=== PATIENT | male | born 1990 | race Caucasian/White ===

== ENCOUNTER 2017-11-19 17:44 | Emergency (ER) | payer MEDICAID, SELFPAY ==
--- NOTE | 2017-11-19 13:01 | EKG12_ITS ---
Test Reason : CP Blood Pressure : / mmHG Vent. Rate : 082 BPM Atrial Rate : 082 BPM P-R Int : 146 ms QRS Dur : 102 ms QT Int : 372 ms P-R-T Axes : 011 015 035 degrees QTc Int : 434 ms Normal sinus rhythm with sinus arrhythmia Normal ECG Confirmed by IVETTE MENDEZ MD ([id number]), editor newspaper JUANPABLO GONZALEZ ([id number]) on 11/24/2017 5:33:02 PM Referred By: SHANE
--- NOTE | 2017-11-19 16:10 | RAD_ITS ---
STUDY: X-RAY CHEST REASON FOR EXAM: Male, 27 years old. Chest pain TECHNIQUE: Single AP portable view of the chest. COMPARISON: None. FINDINGS: The lungs are clear and expanded. There is no demonstrated pleural abnormality. Normal size heart. Normal mediastinum and allison. Normal visualized pulmonary arteries. Normal visualized aortic arch and descending thoracic aorta. Normal visualized thoracic spine. Normal visualized ribs, clavicles, and shoulders. There is no demonstrated abnormality of the visualized soft tissue structures of the upper abdomen. RAD/Chest 1 View (Portable) IMPRESSION: Normal x-ray examination of the chest. Electronically Signed: Tushar Robbins MD at 17:16 EDT , Service support ,
--- NOTE | 2017-11-19 17:44 | DT_ITS ---
This patient was seen during an EMR downtime November 15, 2017 - November 22, 2017. This patient may have a combination of paper and electronic documentation or all paper documentation. All documentation is viewable within the e-chart portion of [employer] for each patient visit.
[2017-11-22 10:53] LABS: Absolute Neutrophil Count 4.9 X10^3/uL (2.0-7.7); Basophil% 0.4 % (0-1); Eosinophils% 1.6 % (0-5); Hematocrit 46.8 % (40-54); Hemoglobin 16.1 g/dl (13.0-16.5); Lymphocyte % 27.8 % (19-41); Mean Corp Hgb Conc 34.4 g/gl (32-36); Mean Corpuscular Hgb 28.8 pg (27.0-32.0); Mean Corpuscular Volume 83.7 fL (80-94); Monocyte% 7.2 % (0-10); Neutrophil # 4.94 X10^3/uL (2.7-7.7); Neutrophil % 62.5 % (47-70); POSITIVE COUNT NO; POSITIVE DIFFERENTIAL NO; POSITIVE MORPHOLOGY NO; Platelet Count 263 K/mm3 (150-450); RBC Distribution Width CV 13.2 % (11.6-14.6); RBC Distribution Width SD 39.8 fl (35.1-43.9); Red Blood Count 5.59 M/mm3 (4.6-6.2); White Blood Count 7.9 K/mm3 (4.4-11.0)
[2017-11-22 10:54] LABS: Basophil# 0.03 X10^3/uL; D-Dimer Quantitative (DVT/PE) < 0.27 FEU/ug/m (0.27-0.49); Eosinophil# 0.13 X10^3/uL; Monocyte# 0.57 X10^3/uL
[2017-11-22 21:35] LABS: BUN 9 mg/dL (7-18); BUN/Creat Ratio 10.1 RATIO (10-20); Creatinine, Serum 0.89 mg/dL (0.70-1.30); EST Glomerular Filtration Rate 107 mL/min (>60); Est Glom Filt Rate - Afr Amer 130 mL/min (>60); Glucose 92 mg/dL (74-106); Protein, Total 7.9 g/dL (6.4-8.2)
[2017-11-22 21:36] LABS: ALB/GLOB Ratio 1.2 RATIO (0.9-2.4); AST(SGOT) 20 U/L (15-37); Alanine Aminotransfer ALT/SGPT 34 U/L (16-61); Albumin, Serum 4.3 g/dL (3.2-5.0); Alkaline Phosphatase 74 U/L (45-117); Anion Gap 8 (5-15); Chloride 106 mmol/L (98-107); Globulin 3.6 g/dL (2.2-4.2); Potassium 3.7 mmol/L (3.5-5.1); Sodium Level 140 mmol/L (136-145)
== END 2017-11-19 18:20 | disposition home or self-care (01) ==
LOC: ED 11-20 12:42
PROVIDERS: Emergency Provider Emergency Medicine; Family Provider Family Medicine; PCP Family Medicine
DX: R07.9 Chest pain, unspecified (principal); R20.2 Paresthesia of skin; I10 Essential (primary) hypertension
CPT/HCPCS: 36415; 71045; 80053; 84484; 85025; 85379; 93005; 99283; A4216

== ENCOUNTER → 2017-12-29 20:16 | Outpatient (CLI) | payer MEDICAID, SELFPAY ==
[2017-12-29] MEDS: Zolpidem Tartrate 5 MG Tablet PO (21:50)
== END ==
PROVIDERS: Family Provider Family Medicine; PCP Family Medicine; Visit Provider Family Medicine
DX: G47.33 Obstructive sleep apnea (adult) (pediatric) (principal)
CPT/HCPCS: 95810

== ENCOUNTER → 2018-02-08 20:22 | Outpatient (CLI) | payer MEDICAID, SELFPAY ==
[2018-02-08] MEDS: Zolpidem Tartrate 5 MG Tablet PO (21:50)
== END ==
PROVIDERS: Family Provider Family Medicine; PCP Family Medicine; Visit Provider Family Medicine
DX: G47.33 Obstructive sleep apnea (adult) (pediatric) (principal)
CPT/HCPCS: 95811

== ENCOUNTER → 2021-12-22 | Outpatient (CLI) | payer MEDICAID, SELFPAY ==
[2021-12-22 14:36] LABS: NATERA MAILED SPECIMEN
== END | disposition home or self-care (01) ==
LOC: PAVLAB 13:30
PROVIDERS: PCP Family Medicine; Referring Provider Nurse Practitioner Women's Health; Visit Provider Nurse Practitioner Women's Health
DX: Z31.440 Encounter of male for testing for genetic disease carrier status for procreative management (principal)
CPT/HCPCS: 36415